=== PATIENT | male | born 1965 | race African-American/Black ===

== ENCOUNTER 2023-08-30 08:00 | Outpatient (RCR) | payer MEDICARE, OTHER | END 2023-09-07 12:15 | disposition home or self-care (01) | LOC: WCC 08:00 | PROVIDERS: ATTEND Internal Medicine Infectious Disease | DX: L89.154 Pressure ulcer of sacral region, stage 4 (principal); M86.18 Other acute osteomyelitis, other site ==

== ENCOUNTER 2023-09-10 08:00 | Outpatient (RCR) | payer MEDICARE, OTHER | END 2023-10-10 | LOC: WCC 08:00 | PROVIDERS: ATTEND Internal Medicine Infectious Disease | DX: L89.154 Pressure ulcer of sacral region, stage 4 (principal); M86.18 Other acute osteomyelitis, other site ==